=== PATIENT | female | born 1960 | race Caucasian/White ===

== ENCOUNTER 2019-06-01 19:43 | Emergency (ER) | payer SELFPAY ==
[~2019-06-01] VITALS: Ht 144.8 cm; Wt 44.0 kg
[2019-06-01 19:48] VITALS: BP_SYST 162
--- NOTE | 2019-06-01 19:51 | NUR ---
Patient to ER bed 07 to gown for evaluation. Side rails up.
--- NOTE | 2019-06-01 20:00 | NUR ---
Patient AOx4, ambulatory, presents to ED with complaint of bilateral hand pain and irritation x 7 days. 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 Patient reports using Hydrocortisone but was ineffective. No other symptoms or complaints.
--- NOTE | 2019-06-01 20:02 | NUR ---
LINDA Morel at bedside for medical evaluation.
[2019-06-01 20:43] VITALS: BP_SYST 162
--- NOTE | 2019-06-01 20:43 | NUR ---
Patient given written and verbal discharge instructions and verbalizes understanding. ER MD discussed with patient the results and treatment provided. Patient in stable condition. ID arm band removed. Rx of Kenalog, prednisone, and sodium sulfacetamide given. Patient educated on pain management and to follow up with PMD. Pain Scale 2/10 tolerable to patient. Opportunity for questions provided and answered. Medication side effect fact sheet provided.
== END 2019-06-01 20:43 | disposition home or self-care (01) ==
LOC: SED 19:43
DX: L25.9 Unspecified contact dermatitis, unspecified cause (principal); R03.0 Elevated blood-pressure reading, without diagnosis of hypertension; F17.200 Nicotine dependence, unspecified, uncomplicated; Z71.6 Tobacco abuse counseling; Z88.0 Allergy status to penicillin; Z88.8 Allergy status to other drugs, medicaments and biological substances
CPT/HCPCS: 99283